=== PATIENT | male | born 1955 | race Caucasian/White ===

== ENCOUNTER → 2018-06-03 | Outpatient (CLI) | payer OTHER | END | disposition home or self-care (01) | LOC: RAD 16:19 | PROVIDERS: ATTEND Family Medicine | DX: I82.431 Acute embolism and thrombosis of right popliteal vein (principal) ==

== ENCOUNTER 2018-06-30 11:31 | Inpatient (IN) | payer OTHER ==
[~2018-06-30] VITALS: Ht 193 cm; Wt 85.2 kg
[2018-06-30] MEDS ORDERED: SODIUM CHLORIDE FLUSH 10ML SYR IVF ONE (12:00)
[2018-06-30] MEDS ORDERED: ACETAMINOPHEN 500 MG TABLET PO ONE (12:00)
[2018-06-30 12:23] LABS: MEAN CORPUSCULAR HEMOGLOBIN 31.7 pg (27.5-34.5); MEAN CORPUSCULAR HGB CONC 33.6 g/dL (33.2-36.2); MEAN CORPUSCULAR VOLUME 94.1 fL (81-97); MEAN PLATELET VOLUME 8.4 fL (7.4-10.4); PLATELET COUNT 392 x10^3/uL (130-400); RED BLOOD COUNT 4.28 x10^6/uL (4.38-5.82); RED CELL DISTRIBUTION WIDTH 13.2 % (9.4-14.8)
[2018-06-30] MEDS ORDERED: ACETAMINOPHEN 500 MG TABLET ONE (12:23)
[2018-06-30 12:30] LABS: INTERNATIONAL NORMALIZED RATIO 1.17 (0.93-1.1); PROTHROMBIN TIME 12.3 Seconds (9.6-11.5)
[2018-06-30 12:35] LABS: ALANINE AMINOTRANSFERASE 49 U/L (12-78); ANION GAP 8 mmol/L (5-15); CALCIUM 8.5 mg/dL (8.5-10.1); CHLORIDE 102 mmol/L (98-107); CREATININE 0.76 mg/dL (0.7-1.3); T4 (THYROXINE) 8.9 mcg/dL (4.5-12.1)
[2018-06-30 12:38] LABS: CULTURE INDICATED? YES; MICROSCOPIC INDICATED
[2018-06-30 12:39] LABS: ALKALINE PHOSPHATASE 157 U/L (45-117); BILIRUBIN,TOTAL 1.4 mg/dL (0.2-1.0); TOTAL PROTEIN 7.5 g/dL (6.4-8.2); TROPONIN I < 0.015 ng/mL (0.000-0.045)
[2018-06-30] MEDS ORDERED: OMNIPAQUE 350 MG/ML, 100ML BOTTLE ONE (13:14)
[2018-06-30 13:16] LABS: MD YES
[2018-06-30 13:18] LABS: <PLATELET ESTIMATE> ADEQUATE; <PLT MORPHOLOGY> NORMAL PLT MORPH; <RBC MORPHOLOGY> NORMAL; BAND#(MANUAL) 0.17 x10^3/uL; BANDS%(MANUAL) 1 % (0-7); LYMPH#(MANUAL) 1.04 x10^3/uL (1-3.4); LYMPHS% (MANUAL) 6 % (22-44); MONOS#(MANUAL) 0.87 x10^3/uL (0.3-2.7); MONOS% (MANUAL) 5 % (2-9); SEG#(MANUAL) 15.31 x10^3/uL (1.8-6.8); SEGS% (MANUAL) 88 % (42-75)
[2018-06-30] MEDS ORDERED: RIVA15TA PO (15:18)
[2018-06-30] MEDS: SODIUM CHLORIDE 0.9% 1,000 ML IV SCH (15:58)
[2018-06-30] MEDS ORDERED: ANTI INHIBITOR COAGULANT COMP IVPush ONE ×2 (16:00→17:00)
[2018-06-30] MEDS ORDERED: hydrALAzine 20 MG/ML, 1ML IVPush PRN (16:00)
[2018-06-30] MEDS ORDERED: POLYETHYLENE GLYCOL 17 GM PACKET PO PRN (16:00)
[2018-06-30] MEDS ORDERED: BISACODYL 10 MG SUPP PR PRN (16:00)
[2018-06-30] MEDS: NICOTINE 14MG/24 HR PATCH.TD24 TD SCH (20:55)
[2018-07-01] MEDS: ACETAMINOPHEN 325 MG TABLET PO PRN (03:25)
[2018-07-01 04:32] VITALS: BP 110/70
[2018-07-01 04:52] LABS: BASOPHILS # (AUTO) 0.07 x10^3/uL (0-0.1); BASOPHILS % (AUTO) 1 % (0-1); EOSINOPHILS # (AUTO) 0.04 x10^3/uL (0-0.4); EOSINOPHILS % (AUTO) 0 % (1-7); LYMPHOCYTES # (AUTO) 0.85 x10^3/uL (1-3.4); LYMPHOCYTES % (AUTO) 9 % (22-44); MD NO; MEAN CORPUSCULAR HEMOGLOBIN 31.6 pg (27.5-34.5); MEAN CORPUSCULAR HGB CONC 33.8 g/dL (33.2-36.2); MEAN CORPUSCULAR VOLUME 93.5 fL (81-97); MEAN PLATELET VOLUME 8.7 fL (7.4-10.4); MONOCYTES # (AUTO) 1.25 x10^3/uL (0.2-0.8); MONOCYTES % (AUTO) 13 % (2-9); NEUTROPHILS # (AUTO) 7.79 x10^3/uL (1.8-6.8); NEUTROPHILS % (AUTO) 78 % (42-75); PLATELET COUNT 309 x10^3/uL (130-400); RED BLOOD COUNT 3.58 x10^6/uL (4.38-5.82); RED CELL DISTRIBUTION WIDTH 12.9 % (9.4-14.8)
[2018-07-01 05:00] LABS: ALANINE AMINOTRANSFERASE 31 U/L (12-78); ALBUMIN 2.2 g/dL (3.4-5.0); ANION GAP 9 mmol/L (5-15); CALCIUM 7.8 mg/dL (8.5-10.1); CHLORIDE 106 mmol/L (98-107)
[2018-07-01 05:01] LABS: INTERNATIONAL NORMALIZED RATIO 1.17 (0.93-1.1); PROTHROMBIN TIME 12.3 Seconds (9.6-11.5)
[2018-07-01 05:02] LABS: CREATININE 0.61 mg/dL (0.7-1.3)
[2018-07-01 05:03] LABS: ALKALINE PHOSPHATASE 123 U/L (45-117); TOTAL PROTEIN 6.1 g/dL (6.4-8.2)
[2018-07-01] MEDS ORDERED: POTASSIUM CHLORIDE 10% 40 MEQ/30 ML UDC PO ONE (06:30)
[2018-07-01] MEDS: SODIUM CHLORIDE 0.9% 1,000 ML IV SCH ×2 (07:52→18:38)
[2018-07-01] MEDS: PANTOPRAZOLE 40 MG IV IVPush SCH (07:52)
[2018-07-01] MEDS ORDERED: AMIODARONE 150 MG in DEXTROSE 5% 100 ML IV ONE (13:00)
[2018-07-01] MEDS ORDERED: FILTER 0.22 MICRON FOR AMIODARONE IV PRN (13:00)
[2018-07-01] MEDS ORDERED: BUPIVACAINE/PF-EPI 0.5% 1:200K ONE (19:04)
[2018-07-01] MEDS ORDERED: FENTANYL PF 100 MCG/2ML ONE ×3 (19:18→19:19)
[2018-07-01] MEDS ORDERED: MIDAZOLAM 1 MG/ML, 2ML ONE (19:19)
[2018-07-01] MEDS ORDERED: OXYcodone 5 MG/5 ML ORAL.SOL UDC PO PRN (19:30)
[2018-07-01] MEDS ORDERED: PROMETHAZINE 25 MG/ML, 1ML IV PRN (19:30)
[2018-07-01] MEDS ORDERED: FENTANYL PF 100 MCG/2ML IV PRN (19:30)
[2018-07-01] MEDS ORDERED: MORPHINE SULFATE 4 MG/ML, 1ML IVPush PRN (19:30)
[2018-07-01] MEDS ORDERED: ONDANSETRON 2MG/ML, 2ML IV PRN (19:30)
[2018-07-01] MEDS ORDERED: PROMETHAZINE 12.5 MG SUPP PR PRN (19:30)
[2018-07-01] MEDS ORDERED: hydrALAzine 20 MG/ML, 1ML IV PRN (19:30)
[2018-07-01] MEDS ORDERED: PROMETHAZINE 25 MG SUPP PR PRN (19:30)
[2018-07-01] MEDS ORDERED: PROMETHAZINE 25 MG/ML, 1ML IM PRN ×2 (19:30)
[2018-07-01] MEDS ORDERED: MEPERIDINE/PF 25MG/0.5ML IVPush PRN (19:30)
[2018-07-01] MEDS ORDERED: LABETALOL 5MG/ML, 20ML IV PRN (19:30)
[2018-07-01] MEDS ORDERED: ONDANSETRON ODT 8 MG PO PRN (19:30)
[2018-07-01] MEDS ORDERED: GLYCOPYRROLATE 0.2MG/1ML, 5ML ONE (19:34)
[2018-07-01] MEDS ORDERED: ROCURONIUM 10 MG/ML,10ML ONE (19:34)
[2018-07-01] MEDS ORDERED: CEFAZOLIN 1,000 MG ONE (19:34)
[2018-07-01] MEDS ORDERED: NEOSTIGMINE 1 MG/ML, 10ML ONE (19:34)
[2018-07-01] MEDS ORDERED: PROPOFOL 10 MG/ML, 20ML ONE (19:34)
[2018-07-01] MEDS ORDERED: SUGAMMADEX 200 MG/2 ML IVPush ONE (20:30)
[2018-07-01] MEDS ORDERED: ALBUTEROL SULFATE 2.5 MG/3 ML ONE (20:40)
[2018-07-01] MEDS ORDERED: HYDROmorphone 2 MG/ML, 1ML ONE (20:47)
[2018-07-01] MEDS: HYDROmorphone 2 MG/ML, 1ML IVPush PRN ×2 (20:55→21:04)
[2018-07-01] MEDS: NICOTINE 14MG/24 HR PATCH.TD24 TD SCH (22:44)
[2018-07-01] MEDS: HYDROcodone/APAP 5/325 TABLET PO PRN (22:59)
[2018-07-02 04:39] VITALS: BP 112/77
[2018-07-02] MEDS: HYDROcodone/APAP 5/325 TABLET PO PRN ×3 (04:44→15:53)
[2018-07-02 05:11] LABS: BASOPHILS # (AUTO) 0.02 x10^3/uL (0-0.1); BASOPHILS % (AUTO) 0 % (0-1); EOSINOPHILS # (AUTO) 0.06 x10^3/uL (0-0.4); EOSINOPHILS % (AUTO) 1 % (1-7); LYMPHOCYTES # (AUTO) 1.05 x10^3/uL (1-3.4); LYMPHOCYTES % (AUTO) 10 % (22-44); MD NO; MEAN CORPUSCULAR HEMOGLOBIN 32.1 pg (27.5-34.5); MEAN CORPUSCULAR HGB CONC 34.3 g/dL (33.2-36.2); MEAN CORPUSCULAR VOLUME 93.5 fL (81-97); MEAN PLATELET VOLUME 8.1 fL (7.4-10.4); MONOCYTES # (AUTO) 0.96 x10^3/uL (0.2-0.8); MONOCYTES % (AUTO) 9 % (2-9); NEUTROPHILS # (AUTO) 8.89 x10^3/uL (1.8-6.8); NEUTROPHILS % (AUTO) 81 % (42-75); PLATELET COUNT 335 x10^3/uL (130-400); RED BLOOD COUNT 3.92 x10^6/uL (4.38-5.82); RED CELL DISTRIBUTION WIDTH 12.9 % (9.4-14.8)
[2018-07-02 05:27] LABS: ANION GAP 9 mmol/L (5-15); CALCIUM 8.3 mg/dL (8.5-10.1); CHLORIDE 107 mmol/L (98-107); CREATININE 0.53 mg/dL (0.7-1.3)
[2018-07-02] MEDS: ALBUTEROL/IPRATROPIUM 2.5MG/0.5MG, 3 ML NPPB SCH ×2 (06:48→10:29)
[2018-07-02] MEDS ORDERED: AMIODARONE 200 MG TABLET ONE (09:13)
[2018-07-02] MEDS: PANTOPRAZOLE 40 MG IV IVPush SCH (09:16)
[2018-07-02] MEDS: SODIUM CHLORIDE 0.9% 1,000 ML IV SCH (09:17)
[2018-07-02] MEDS ORDERED: FENTANYL PF 100 MCG/2ML IV ONE (12:30)
[2018-07-02] MEDS ORDERED: HEPARIN 5,000 UNITS/ML, 1ML IV ONE (18:30)
[2018-07-02] MEDS: HEPARIN 25,000 UNITS/500ML PMX 500 ML IV PRN (18:33)
[2018-07-02] MEDS: NICOTINE 14MG/24 HR PATCH.TD24 TD SCH (20:32)
[2018-07-03] MEDS: HEPARIN 5,000 UNITS/ML, 1ML IV PRN ×3 (01:35→16:37)
[2018-07-03 04:00] VITALS: BP 125/86
[2018-07-03] MEDS: HYDROcodone/APAP 5/325 TABLET PO PRN ×4 (04:27→23:42)
[2018-07-03 04:33] LABS: BASOPHILS # (AUTO) 0.03 x10^3/uL (0-0.1); BASOPHILS % (AUTO) 0 % (0-1); EOSINOPHILS # (AUTO) 0.15 x10^3/uL (0-0.4); EOSINOPHILS % (AUTO) 2 % (1-7); LYMPHOCYTES # (AUTO) 1.12 x10^3/uL (1-3.4); LYMPHOCYTES % (AUTO) 13 % (22-44); MD NO; MEAN CORPUSCULAR HEMOGLOBIN 31.4 pg (27.5-34.5); MEAN CORPUSCULAR HGB CONC 33.4 g/dL (33.2-36.2); MEAN CORPUSCULAR VOLUME 93.9 fL (81-97); MEAN PLATELET VOLUME 8.1 fL (7.4-10.4); MONOCYTES # (AUTO) 0.69 x10^3/uL (0.2-0.8); MONOCYTES % (AUTO) 8 % (2-9); NEUTROPHILS # (AUTO) 6.92 x10^3/uL (1.8-6.8); NEUTROPHILS % (AUTO) 78 % (42-75); PLATELET COUNT 353 x10^3/uL (130-400); RED BLOOD COUNT 4.06 x10^6/uL (4.38-5.82); RED CELL DISTRIBUTION WIDTH 12.9 % (9.4-14.8)
[2018-07-03 04:42] LABS: ALBUMIN 2.1 g/dL (3.4-5.0); ANION GAP 6 mmol/L (5-15); CALCIUM 8.2 mg/dL (8.5-10.1); CHLORIDE 106 mmol/L (98-107)
[2018-07-03 04:46] LABS: ALANINE AMINOTRANSFERASE 28 U/L (12-78); ALKALINE PHOSPHATASE 121 U/L (45-117); BILIRUBIN,TOTAL 0.5 mg/dL (0.2-1.0); CREATININE 0.68 mg/dL (0.7-1.3); TOTAL PROTEIN 6.3 g/dL (6.4-8.2)
[2018-07-03] MEDS ORDERED: ALBUTEROL/IPRATROPIUM 2.5MG/0.5MG, 3 ML NPPB PRN (07:00)
[2018-07-03] MEDS ORDERED: ALBUTEROL/IPRATROPIUM 2.5MG/0.5MG, 3 ML NPPB SCH (07:00)
[2018-07-03] MEDS: AMIODARONE 200 MG TABLET PO SCH (09:07)
[2018-07-03] MEDS: HEPARIN 25,000 UNITS/500ML PMX 500 ML IV PRN (13:32)
[2018-07-03 15:18] VITALS: BP 101/64
[2018-07-03] MEDS: NICOTINE 14MG/24 HR PATCH.TD24 TD SCH (18:15)
[2018-07-04] MEDS: HEPARIN 5,000 UNITS/ML, 1ML IV PRN (00:10)
[2018-07-04] MEDS: HEPARIN 25,000 UNITS/500ML PMX 500 ML IV PRN (02:33)
[2018-07-04] MEDS: HYDROcodone/APAP 5/325 TABLET PO PRN ×2 (03:44→09:54)
[2018-07-04 03:55] VITALS: BP 111/73
[2018-07-04 07:18] VITALS: BP 105/73
[2018-07-04] MEDS: AMIODARONE 200 MG TABLET PO SCH (08:36)
[2018-07-04 13:20] VITALS: BP 107/72
[2018-07-04] MEDS: APIXABAN 5 MG TABLET PO SCH ×2 (14:41→21:07)
[2018-07-04] MEDS: NICOTINE 14MG/24 HR PATCH.TD24 TD SCH (18:20)
[2018-07-04 20:57] VITALS: BP 122/68
[2018-07-05] MEDS: ACETAMINOPHEN 325 MG TABLET PO PRN (00:25)
[2018-07-05 01:59] VITALS: BP 118/82
[2018-07-05 09:09] VITALS: BP 105/71
[2018-07-05] MEDS: NICOTINE 14MG/24 HR PATCH.TD24 TD SCH (10:25)
[2018-07-05] MEDS: AMIODARONE 200 MG TABLET PO SCH (10:25)
[2018-07-05] MEDS: APIXABAN 5 MG TABLET PO SCH (10:25)
[2018-07-05] MEDS ORDERED: APIX5TAB PO (10:29)
[2018-07-05] MEDS ORDERED: AMIO200T42 PO (10:29)
[2018-07-08 16:12] LABS: ANA SCREEN NEGATIVE (Negative)
== END 2018-07-05 11:39 | disposition home or self-care (01) | DRG 270 ==
LOC: ED 13:39 → EDIP 15:32 → CCU 17:04 → 5SO 07-03 14:54
PROVIDERS: ADMIT Hospitalist; ATTEND Hospitalist
PROC: 02N Heart and Great Vessels, Release (ICD-10-PCS; 2018-07-01)
PROC: 0W9D40Z Drainage of Pericardial Cavity with Drainage Device, Percutaneous Endoscopic Approach (ICD-10-PCS; principal; 2018-07-01 17:30)
DX: I31.3 Pericardial effusion (noninflammatory) (principal); I26.99 Other pulmonary embolism without acute cor pulmonale; I82.531 Chronic embolism and thrombosis of right popliteal vein; J43.9 Emphysema, unspecified; F17.210 Nicotine dependence, cigarettes, uncomplicated; I48.91 Unspecified atrial fibrillation; Z79.01 Long term (current) use of anticoagulants
CPT/HCPCS: 36415; 84145; 87806; 99291; J3490; J7620; 71045; 71275; 80048; 80053; 80074; 81001; 83605; 83735; 84100; 84436; 84443; 84484; 85025; 85520; 85610; 85730; 86038; 86430; 87040; 87081; 87086; 88305; 93005; 93306; 93308; 93321; 93970; 94640; C1729; G0378; J0690; J1170; J1644; J2250; J2704; J2710; J3010; J7198; Q9967; C9113; G0475; J0282; J7030